=== PATIENT | female | born 1975 | race Caucasian/White ===

== ENCOUNTER 2016-04-09 22:06 | Emergency (ER) | payer OTHER ==
[2016-04-09 22:20] VITALS: TEMP 98.5; BMI 35.9
--- NOTE | 2016-04-10 00:13 | PDOC ---
History of Present Illness - General Chief Complaint: Vaginal Bleeding Stated Complaint: VAGINAL BLEEDING Time Seen by Provider: 04/09/16 23:13 History Source: Patient Exam Limitations: No Limitations - History of Present Illness Travel History: No Timing/Duration: reports: constant Past History - Travel Traveled outside of the country in the last 30 days: No Close contact w/someone who was outside of country & ill: No - Past Medical History Allergies/Adverse Reactions: Allergies Allergy/AdvReac Type Severity Reaction Status Date / Time sumatriptan [From Imitrex] Allergy Intermediate NUMBNESS Verified 04/09/16 22:17 TONGUE,JAW AND CHESTPAIN Home Medications: Ambulatory Orders Divalproex [Depakote -] 250 mg PO BID 12/26/14 Naproxen [Naprosyn -] 500 mg PO BID PRN 10/20/15 Iron 325 mg PO DAILY 04/09/16 Asthma: Yes Cardiac Disorders: Yes (SEEN BY NOE FOR EKG) - Immunization History Immunization Up to Date: Yes - Psycho/Social/Smoking Cessation Hx Anxiety: No Suicidal Ideation: No Smoking History: Never smoked Have you smoked in the past 12 months: No Number of Cigarettes Smoked Daily: 0 Information on smoking cessation initiated: No Hx Alcohol Use: No Drug/Substance Use Hx: No Substance Use Type: None Abd/GI Specific PMHX - Complaint Specific PMHX Diverticulitis: No Gall Bladder Disease: No GERD: No Review of Systems - Review of Systems Able to Perform ROS?: Yes Comments:: 04/10/16 02:08 CONSTITUTIONAL: +malaise Absent: fever, chills, diaphoresis, generalized weakness, loss of appetite HEENT: Absent: rhinorrhea, nasal congestion, throat pain, throat swelling, difficulty swallowing, mouth swelling, ear pain, eye pain, visual Changes CARDIOVASCULAR: Absent: chest pain, loss of consciousness, palpitations, irregular heart rate, peripheral edema RESPIRATORY: Absent: cough, shortness of breath, dyspnea with exertion, orthopnea, wheezing, stridor, hemoptysis GASTROINTESTINAL: Absent: abdominal pain, abdominal distension, nausea, vomiting, diarrhea, constipation, melena, hematochezia GENITOURINARY: Absent: dysuria, frequency, urgency, hesitancy, hematuria, flank pain, genital pain MUSCULOSKELETAL: Absent: myalgia, arthralgia, joint swelling SKIN: Absent: rash, itching, pallor HEMATOLOGIC/IMMUNOLOGIC: Absent: easy bleeding, easy bruising, lymphadenopathy, frequent infections ENDOCRINE: Absent: unexplained weight gain, unexplained weight loss, heat intolerance, cold intolerance NEUROLOGIC: Absent: headache, focal weakness or paresthesias, dizziness, unsteady gait, seizure, mental status changes, bladder or bowel incontinence PSYCHIATRIC: Absent: anxiety, depression, suicidal or homicidal ideation, hallucinations. Is the patient limited [place] proficient: No *Physical Exam - Vital Signs Last Vital Signs Temp Pulse Resp BP Pulse Ox 98.5 F 113 H 16 144/74 100 04/09/16 22:18 04/09/16 22:18 04/09/16 22:18 04/09/16 22:18 04/09/16 22:18 - Physical Exam Comments: 04/10/16 02:08 GENERAL: Well developed, well nourished. Awake and alert. No acute distress. HEENT: Normocephalic, atraumatic. PERRLA, EOMI. No conjunctival pallor. Sclera are non- icteric. Moist mucous membranes. Oropharynx is clear. NECK: Supple. Full ROM. No JVD. Carotid pulses 2+ and symmetric, without bruits. No thyromegaly. No lymphadenopathy. CARDIOVASCULAR: Regular rate and rhythm. No murmurs, rubs, or gallops. Distal pulses are 2+ and symmetric. PULMONARY: No evidence of respiratory distress. Lungs clear to auscultation bilaterally. No wheezing, rales or rhonchi. ABDOMINAL: Soft. Non-tender. Non-distended. No rebound or guarding. No organomegaly. Normoactive bowel sounds. MUSCULOSKELETAL Normal range of motion at all joints. No bony deformities or tenderness. No CVA tenderness. EXTREMITIES: No cyanosis. No clubbing. No edema. No calf tenderness. SKIN: Warm and dry. Normal capillary refill. No rashes. No jaundice. NEUROLOGICAL: Alert, awake, appropriate. Cranial nerves 2-12 intact. No deficits to light touch and temperature in face, upper extremities and lower extremities. No motor deficits in the in face, upper extremities and lower extremities. Normoreflexic in the upper and lower extremities. Normal speech. Toes are down- going bilaterally. Gait is normal without ataxia. PSYCHIATRIC: Cooperative. Good eye contact. Appropriate mood and affect. ED Treatment Course - LABORATORY CBC & Chemistry Diagram: 04/10/16 00:41 04/10/16 00:10 - RADIOLOGY Radiology Studies Ordered: 04/10/16 02:47 EXAM: ULTRASOUND PELVIS, COMPLETE AND TRANSVAGINAL ULTRASOUND AND DUPLEX SCAN PELVIS, COMPLETE No ovarian torsion. Arterial and venous waveforms in right ovary and arterial waveforms on left. 3.6 cm right ovarian cyst. No free fluid. Normal uterus. Endometrial stripe complex 12 mm thick. Unremarkable visualized portion of bladder. Progress Note - Progress Note Progress Note: 40-year-old female presents to the emergency department complaining of vaginal bleeding 1 month. Patient states her bleeding has increased into clots for the past 2 weeks. Patient denies any headache, dizziness, lightheadedness, chest pain, shortness of breath, abdominal pains, flank pain, urinary symptoms: Frequency/urgency/hesitancy. Patient is scheduled for a D&C/hysteroscopy/ablation on April with DR. Reis To [phone] Patient was advised from her handbook writer to be seen in the emergency department if her bleeding continues. 0335hrs: Pt wishes to go AMA and drive to [facility] where her handbook writer has privileges. She says her body joiner/Dr. Ilana Treviño sent her to the ER but didn't realize that she didn't have privileges here. 0345hrs: AMA signed/witnessed by spouse.. A copy of the US preliminary and all B /W will be given to the pt. *DC/Admit/Observation/Transfer Diagnosis at time of Disposition: DUB (dysfunctional uterine bleeding) - Discharge Dispostion Disposition: AGAINST MEDICAL ADVICE Condition at time of disposition: Guarded - Referrals Referrals: Ilana Jacobson [Non Staff, Medical] - - Patient Instructions Printed Discharge Instructions: DI for Vaginal Bleeding Additional Instructions: Be sure to follow up with your Band Salvager You are going against medical advice by signing yourself out as you were suppose to be admitted for a Gynecology consult. Please return for severe/persistent or worsening symptoms or continue vaginal bleeding.
--- NOTE | 2016-04-10 00:49 | PDOC ---
[id number] 144/74 100 04/09/16 22:18 04/09/16 22:18 04/09/16 22:18 04/09/16 22:18 04/09/16 22:18 ED Treatment Course - LABORATORY CBC & Chemistry Diagram: 04/10/16 00:41 04/10/16 00:10 Medical Decision Making - Medical Decision Making 04/10/16 00:49 Case discussed with YAMILE Gonzalez. Plan as per YAMILE. *DC/Admit/Observation/Transfer Diagnosis at time of Disposition: DUB (dysfunctional uterine bleeding) - Discharge Dispostion Disposition: AGAINST MEDICAL ADVICE Condition at time of disposition: Guarded - Referrals Referrals: Ilana Jacobson [Non Staff, Medical] - - Patient Instructions Printed Discharge Instructions: DI for Vaginal Bleeding Additional Instructions: Be sure to follow up with your Aeronautical Research Engineer You are going against medical advice by signing yourself out as you were suppose to be admitted for a Gynecology consult. Please return for severe/persistent or worsening symptoms or continue vaginal bleeding.
[2016-04-10 00:50] LABS: BASOPHIL 0.3 % (0-2.0); EOSINOPHIL 1.9 % (0-4.5); MCHC 30.7 g/dl (32.0-36.0); MEAN CELL VOLUME 71.6 fl (80-96); MEAN PLT VOLUME 6.6 fl (7.5-11.1); PLATELET COUNT 449 K/MM3 (134-434); RDW 16.7 % (11.6-15.6); WHITE BLOOD COUNT 7.4 K/mm3 (4.0-10.0)
[2016-04-10 01:00] LABS: INR 1.01 (0.82-1.09); PROTHROMBIN TIME (PATIENT) 11.1 SEC (9.98-11.88)
[2016-04-10 01:02] LABS: URINE APPEARANCE CLEAR; URINE BILIRUBIN NEGATIVE (NEGATIVE); URINE COLOR STRAW; URINE GLUCOSE (UA) NEGATIVE (NEGATIVE); URINE KETONE NEGATIVE (NEGATIVE); URINE NITRITE NEGATIVE (NEGATIVE); URINE UROBILINOGEN NEGATIVE E.U./dl (0.2-1.0)
[2016-04-10 01:03] LABS: URINE BLOOD 3+ (NEGATIVE); URINE LEUK ESTERASE TRACE (NEGATIVE); URINE PROTEIN 1+ (NEGATIVE)
[2016-04-10 01:08] LABS: URINE RBC 905 /hpf (0-3); URINE WBC 2 /hpf (3-5)
[2016-04-10 01:11] LABS: ALBUMIN 3.5 g/dl (3.4-5.0); ANION GAP 11 (8-16); BILIRUBIN,TOTAL 0.2 mg/dL (0.2-1.0); CALCIUM 8.9 mg/dL (8.5-10.1); CO2 27 mmol/L (21-32); CREATININE 0.6 mg/dL (0.55-1.02); GLUCOSE,RANDOM 92 mg/dL (74-106); SGOT/AST 10 U/L (15-37); SGPT/ALT 24 U/L (12-78)
[2016-04-10 01:12] LABS: ALK PHOS 64 U/L (45-117)
[2016-04-10 04:01] VITALS: BP 110/71; PULSE 95
== END 2016-04-10 04:01 | disposition left against medical advice (07) ==
LOC: JER 22:06
DX: N93.8 Other specified abnormal uterine and vaginal bleeding (principal); N83.291 Other ovarian cyst, right side
CPT/HCPCS: 36415; 76830-TC; 80053; 81003; 81015; 84703; 85025; 85610; 86850; 86900; 86901; 99282-25